=== PATIENT | female | born 1970 | race Caucasian/White ===

== ENCOUNTER 2017-03-03 05:57 | Inpatient (IN) | payer OTHER ==
[2017-03-03] VITALS (8 sets, daily range): BP systolic 98–126; BP diastolic 56–79; PULSE 51–67; RESP 14–20; TEMP 96.6–98.3; O2SAT 97–100
[~2017-03-03] VITALS: Ht 167.6 cm; Wt 69.8 kg
[2017-03-03] MEDS ORDERED: ONDANSETRON HCL 4 MG/2 ML VIAL IV ONE (06:15)
[2017-03-03] MEDS ORDERED: SODIUM CHLOR 0.9% 1000 ML INJ 1,000 ML IV ONE (06:15)
--- NOTE | 2017-03-03 06:42 | PD ---
HPI Chief Complaint: Abdominal Pain Time Seen by Provider: 06:07 Travel History International Travel<30 days: Yes Contact w/Intl Traveler<30days: Yes Name of Country Traveled to: [place] Traveled to known affect area: No History of Present Illness HPI The patient is a 46 year old female who presents to the [facility] emergency department with a history of abdominal pain that she reports began in November. She reports that it have been only occurring 1 time per month. She reports that the pain recurred on Wednesday night. She reports that she was uncomfortable throughout the night and then awoke with left upper quadrant abdominal pain at 5:30 AM. She reports that she had nausea and vomiting 1 associated with this and diarrhea 2-3 times. She denies having any blood in her stool or black or tarry stools. The patient reports that the pain is a cramping sensation. She denies any alleviating or aggravating factors. She reports that she has had a diminished appetite. She reports that she was able to sleep and awoke again at 11 AM on Wednesday without the pain. She reports that on Wednesday she felt better throughout the day and then this evening the pain recurred. She reports that her primary care physician is in [place]. She denies ever having a colonoscopy. She denies having any acid reflux or heartburn symptoms. She denies taking any [id number] anti-inflammatory pain medications on a regular basis. She denies regularly drinking alcohol. She denies any dysuria, hematuria, urinary urgency, however she has had some urinary frequency. She denies having any chest pain, chest pressure, or shortness of breath. She denies having any fevers or chills, cough or congestion. She denies having any lower extremity edema, calf pain, or erythema. The patient reports that she is currently nauseated. LMP: Status post hysterectomy PFSH Past Medical History Narrative Medical The patient's past medical history is reportedly none. Medical History: Denies Significant Hx ?: Not Past Surgical History Narrative Surgical The patient's past surgical history is significant for hysterectomy, 1. Section: Yes (2005) Hysterectomy: Yes Tonsillectomy: Yes Social History Alcohol Use: No Tobacco Use: No (used to smoke 1 1/2 ppd) Substance Use: No Allergies-Medications (Allergen,Severity, Reaction): Coded Allergies: No Known Allergies (Unverified , 03/03/17) Review of Systems Except as stated in HPI: all other systems reviewed are Neg General / Constitutional: No: Fever Eyes: No: Visual changes HENT: No: Headaches Cardiovascular: No: Chest Pain or Discomfort Respiratory: No: Shortness of Breath Gastrointestinal: Positive: Nausea, Vomiting, Diarrhea, Abdominal Pain, Loss of Appetite, No: Hematemesis, Hematochezia, Constipation, Changes in Bowel Habits, Indigestion Genitourinary: No: Dysuria Musculoskeletal: No: Pain Skin: No Rash Neurologic: No: Weakness Psychiatric: No: Depression Endocrine: No: Polydipsia Hematologic/Lymphatic: No: Easy Bruising Physical Exam Narrative General: The patient is a well-developed well-nourished female in no acute distress. Head and Neck exam: Head is normocephalic atraumatic. Eyes: EOMI, pupils are equal round and reactive to light. Nose: Midline septum with pink mucous membranes Mouth: Dentition unremarkable. Moist mucus membranes. Posterior oropharynx is not erythematous. No tonsillar hypertrophy. Uvula midline. Airway patent. Neck: No palpable lymphadenopathy. No nuchal rigidity. No thyromegaly. Cardiovascular: Regular rate and rhythm without murmurs, gallops, or rubs. Lungs: Clear to auscultation bilaterally. No wheezes, rhonchi, or rales. Abdomen: Soft, without tenderness to palpation in all 4 quadrants of the abdomen. No guarding, rebound, or rigidity. No tenderness on palpation of McBurney's point. Normal bowel sounds are audible. Negative Watton sign. Extremities: No clubbing, cyanosis, or edema. 2+ pulses in all 4 extremities. No calf tenderness on palpation. Back: No costovertebral angle tenderness to palpation. Neurologic Exam: Grossly nonfocal. Skin Exam: No rash noted. Intact skin that is warm and dry. Data Data Last Documented VS Vital Signs Date Time Temp Pulse Resp B/P Pulse Ox O2 Delivery O2 Flow Rate FiO2 03/03/17 06:10 54 18 124/76 99 Room Air 03/03/17 05:58 97.8 Orders Electrocardiogram (03/03/17 06:10) Complete Blood Count With Diff (03/03/17 06:10) Comprehensive Metabolic Panel (03/03/17 06:10) Prothrombin Time / Inr (Pt) (03/03/17 06:10) Act Partial Throm Time (Ptt) (03/03/17 06:10) C-Reactive Protein (Crp) (03/03/17 06:10) Lipase (03/03/17 06:10) Urinalysis - C+S If Indicated (03/03/17 06:10) Magnesium (Mg) (03/03/17 06:10) Iv Access Insert/Monitor (03/03/17 06:10) Ecg Monitoring (03/03/17 06:10) Lactic Acid (03/03/17 06:10) Sodium Chlor 0.9% 1000 Ml Inj (Ns 1000 M (03/03/17 06:15) Ondansetron Inj (Zofran Inj) (03/03/17 06:15) Ketorolac Inj (Toradol Inj) (03/03/17 06:45) Ct Abd/Pel W/O Iv Contrast (03/03/17 06:42) Labs Laboratory Tests Test 03/03/17 06:15 White Blood Count 8.7 TH/MM3 Red Blood Count 4.07 MIL/MM3 Hemoglobin 11.8 GM/DL Hematocrit 35.5 % Mean Corpuscular Volume 87.2 FL Mean Corpuscular Hemoglobin 29.0 PG Mean Corpuscular Hemoglobin 33.3 % Concent Red Cell Distribution Width 14.5 % Platelet Count 270 TH/MM3 Mean Platelet Volume 10.5 FL Neutrophils (%) (Auto) 56.4 % Lymphocytes (%) (Auto) 30.8 % Monocytes (%) (Auto) 8.5 % Eosinophils (%) (Auto) 4.0 % Basophils (%) (Auto) 0.3 % Neutrophils # (Auto) 4.9 TH/MM3 Lymphocytes # (Auto) 2.7 TH/MM3 Monocytes # (Auto) 0.7 TH/MM3 Eosinophils # (Auto) 0.4 TH/MM3 Basophils # (Auto) 0.0 TH/MM3 CBC Comment DIFF FINAL Differential Comment MDM Medical Decision Making Medical Screen Exam Complete: Yes Emergency Medical Condition: Yes Medical Record Reviewed: Yes Differential Diagnosis Peptic ulcer disease, versus acid reflux, versus gastritis, versus pancreatitis , versus pyelonephritis, versus ureterolithiasis Narrative Course During the course of the patients emergency department visit, the patients history, examination, and differential diagnosis were reviewed with the patient. The patient had IV access obtained and blood work sent for analysis. The patient was placed on a property assessment monitor with oximetry and blood pressure monitoring. I was called back into the room to evaluate the patient as the patient's pain had not been present on initial examination although it recurred when I left. The patient on examination now has CVA tenderness and suprapubic abdominal discomfort on palpation. A CT scan of the abdomen and pelvis has been ordered to evaluate for possible underlying nephrolithiasis. The patient was initially provided normal saline 1 L IV fluid bolus, Zofran 4 mg IV. The patient was given Toradol 15 mg IV. The patients laboratory studies were reviewed and remarkable for a CBC that is unremarkable. Radiology studies were reviewed and remarkable for [-] The patient's case will be checked out to the oncoming emergency physician to disposition based on the conclusion of the patient's workup. Diagnosis Primary Impression: Abdominal pain Qualified Code: R10.12 - Left upper quadrant pain Additional Impression: Left flank pain Avril Trevizo MD Mar 03, 2017 06:42
[2017-03-03 06:43] LABS: AUTOMATED NEUTROPHIL # 4.9 TH/MM3 (1.8-7.7); BASOPHIL % 0.3 % (0.0-2.0); EOSINOPHIL # 0.4 TH/MM3 (0-0.4); HEMATOCRIT 35.5 % (35.0-46.0); HEMO FLAGS DIFF FINAL; LYMPH % 30.8 % (9.0-44.0); LYMPHOCYTE # 2.7 TH/MM3 (1.0-4.8); MEAN CELL VOLUME 87.2 FL (80.0-100.0); MEAN CORPUSCULAR HGB CONC 33.3 % (32.0-36.0); MONO % 8.5 % (0.0-8.0); NEUT % 56.4 % (16.0-70.0); PLATELET COUNT 270 TH/MM3 (150-450); RED BLOOD COUNT 4.07 MIL/MM3 (4.00-5.30); RED CELL DISTRIBUTION WIDTH 14.5 % (11.6-17.2); WHITE BLOOD COUNT 8.7 TH/MM3 (4.0-11.0)
[2017-03-03] MEDS ORDERED: KETOROLAC TROMETHAMINE 30 MG/ML (IVP) VIAL IV PUSH ONE (06:45)
[2017-03-03 06:59] LABS: INTERNATIONAL NORMALIZED RATIO 0.9 RATIO; PROTHROMBIN TIME - PATIENT 10.4 SEC (9.8-11.6)
[2017-03-03 07:01] LABS: ANION GAP 4 MEQ/L (5-15); AST (GOT) 16 U/L (15-37); BICARBONATE 25.8 MEQ/L (21.0-32.0); BLOOD UREA NITROGEN 13 MG/DL (7-18); CHLORIDE 109 MEQ/L (98-107); GLOMERULAR FILTRATION RATE 111 ML/MIN (>89); POTASSIUM 3.9 MEQ/L (3.5-5.1); SODIUM (NA) 139 MEQ/L (136-145)
[2017-03-03 07:02] LABS: ALT (GPT) 22 U/L (10-53)
[2017-03-03 07:05] LABS: ALKALINE PHOSPHATASE 63 U/L (45-117); TOTAL BILIRUBIN ADULT 0.3 MG/DL (0.2-1.0)
--- NOTE | 2017-03-03 07:33 | PD ---
Data Data Last Documented VS Vital Signs Date Time Temp Pulse Resp B/P Pulse Ox O2 Delivery O2 Flow Rate FiO2 03/03/17 07:12 51 14 118/79 99 Room Air 03/03/17 05:58 97.8 Orders Electrocardiogram (03/03/17 06:10) Complete Blood Count With Diff (03/03/17 06:10) Comprehensive Metabolic Panel (03/03/17 06:10) Prothrombin Time / Inr (Pt) (03/03/17 06:10) Act Partial Throm Time (Ptt) (03/03/17 06:10) C-Reactive Protein (Crp) (03/03/17 06:10) Lipase (03/03/17 06:10) Urinalysis - C+S If Indicated (03/03/17 06:10) Magnesium (Mg) (03/03/17 06:10) Iv Access Insert/Monitor (03/03/17 06:10) Ecg Monitoring (03/03/17 06:10) Lactic Acid (03/03/17 06:10) Sodium Chlor 0.9% 1000 Ml Inj (Ns 1000 M (03/03/17 06:15) Ondansetron Inj (Zofran Inj) (03/03/17 06:15) Ketorolac Inj (Toradol Inj) (03/03/17 06:45) Ct Abd/Pel W/O Iv Contrast (03/03/17 06:42) Lactic Acid (03/03/17 08:29) Admit Order (Ed Use Only) (03/03/17 ) Morphine Inj (Morphine Inj) (03/03/17 08:45) Labs Laboratory Tests Test 03/03/17 03/03/17 06:15 06:25 White Blood Count 8.7 TH/MM3 Red Blood Count 4.07 MIL/MM3 Hemoglobin 11.8 GM/DL Hematocrit 35.5 % Mean Corpuscular Volume 87.2 FL Mean Corpuscular Hemoglobin 29.0 PG Mean Corpuscular Hemoglobin 33.3 % Concent Red Cell Distribution Width 14.5 % Platelet Count 270 TH/MM3 Mean Platelet Volume 10.5 FL Neutrophils (%) (Auto) 56.4 % Lymphocytes (%) (Auto) 30.8 % Monocytes (%) (Auto) 8.5 % Eosinophils (%) (Auto) 4.0 % Basophils (%) (Auto) 0.3 % Neutrophils # (Auto) 4.9 TH/MM3 Lymphocytes # (Auto) 2.7 TH/MM3 Monocytes # (Auto) 0.7 TH/MM3 Eosinophils # (Auto) 0.4 TH/MM3 Basophils # (Auto) 0.0 TH/MM3 CBC Comment DIFF FINAL Differential Comment Prothrombin Time 10.4 SEC Prothromb Time International 0.9 RATIO Ratio Activated Partial 25.0 SEC Thromboplast Time Sodium Level 139 MEQ/L Potassium Level 3.9 MEQ/L Chloride Level 109 MEQ/L Carbon Dioxide Level 25.8 MEQ/L Anion Gap 4 MEQ/L Blood Urea Nitrogen 13 MG/DL Creatinine 0.59 MG/DL Estimat Glomerular Filtration 111 ML/MIN Rate Random Glucose 78 MG/DL Calcium Level 8.2 MG/DL Magnesium Level 2.0 MG/DL Total Bilirubin 0.3 MG/DL Aspartate Amino Transf 16 U/L (AST/SGOT) Alanine Aminotransferase 22 U/L (ALT/SGPT) Alkaline Phosphatase 63 U/L C-Reactive Protein LESS THAN 0.29 MG/DL Total Protein 6.5 GM/DL Albumin 3.1 GM/DL Lipase 247 U/L Lactic Acid Level 1.0 mmol/L [facility] Supervised Visit with CALIN: No Narrative Course Patient care assumed from Dr. Trevizo at 0700 shift change. I was asked to follow the patient's CAT scan of her abdomen and disposition the patient properly. This is a 46-year-old female who since November is been having waxing and waning periods of abdominal cramping and pain on Dr. Trevizo's initial evaluation the patient was without pain and feeling well. Shortly after her initial evaluation patient began having pain so Dr. Trevizo and ordered a CAT scan. On my initial evaluation patient's abdomen is fairly soft and minimally tender in the epigastric area but she is stating that her pain is quite significant. Her initial lactic acid was less than 2. Patient's CAT scan was obtained and shows extensive small bowel intussusception in the lower quadrants without definitive obstruction. This was discussed with the patient and recommended a cervical consult and observation and she is agreeable. The patient was discussed with Dr. Fariha Yanes will place the patient observation status. He states that he is stuck and surgery will see the patient later today and likely will manage the patient nonoperatively. No pain management was ordered. Patient has no other medical comorbidities. Diagnosis Primary Impression: Abdominal pain Qualified Code: R10.12 - Left upper quadrant pain Additional Impression: Left flank pain Admitting Information Admitting Physician Requests: Admit Condition: Stable Elie Harrell MD Mar 03, 2017 07:33
--- NOTE | 2017-03-03 08:09 | RADRPT ---
EXAM DATE/TIME: 03/03/2017 07:27 [place] COMPARISON: No previous studies available for comparison. INDICATIONS : Right side abdominal pain. ORAL CONTRAST: No oral contrast ingested. RADIATION DOSE: 14.51 CTDIvol (mGy) MEDICAL HISTORY : None SURGICAL HISTORY : Hysterectomy. ENCOUNTER: Initial ACUITY: 4 - 6 days PAIN SCALE: 7/10 LOCATION: Right abdomen TECHNIQUE: Volumetric scanning of the abdomen and pelvis was performed. Using automated exposure control and ad justment of the mA and/or kV according to patient size, radiation dose was kept as low as reasonably achievable to obtain optimal diagnostic quality images. DICOM format image data is available electro nically for review and comparison. FINDINGS: There is evidence of an extensive intussusception of the small bowel. Clinical correlation is recomm ended. No definite small bowel dilatation is noted. the colon is non-dilated. No acute obstructive uropathy is noted. the liver is enlarged. Evaluation of the solid organs of the abdomen is limited by the lack of intravenous contrast. Minimal ascites is noted within the pelvis. The uterus is unre markable. The urinary bladder is unremarkable. Mild scoliosis of the lumbar spine is noted. CONCLUSION: 1. Extensive intussusception of the small bowel without definite small bowel dilatation. Clinical c orrelation is recommended. 2. No acute obstructive uropathy. 3. Mild scoliosis of the lumbar spine. Elie Schultz MD on March 03, 2017 at 7:53 Board Certified Radiologist. This report was verified electronically.
[2017-03-03] MEDS ORDERED: MORPHINE SULFATE 4 MG/ML INJ IV PUSH ONE (08:45)
[2017-03-03] MEDS ORDERED: HYDROmorphone HCL PF 1 MG/ML VIAL IV PUSH ONE (10:00)
[2017-03-03 10:45] LABS: BLOOD, URINE NEG (NEG); COMMENT (UR) CULT NOT INDICATED; CULTURE IF INDICATED CULT NOT INDICATED; GLUCOSE,URINE NEG (NEG); KETONE, URINE NEG (NEG); MUCUS URINE FEW /lpf (OCC); NITRITE,URINE NEG (NEG); PH, URINE 6.5 (5.0-8.5); SQUAMOUS EPITHELIAL CELL URINE 2 /hpf (0-5); URINE COLOR YELLOW (YELLW/STRAW)
[2017-03-03] MEDS ORDERED: NORMOSOL R INJ 1,000 ML IV ONE (12:00)
[2017-03-03] MEDS ORDERED: NEOSTIGMINE 3 MG/3 ML SYR IV ONE (12:00)
[2017-03-03] MEDS ORDERED: LACTATED RINGER'S 1000 ML INJ 2,000 ML IV ONE (12:00)
[2017-03-03] MEDS ORDERED: PROPOFOL 200 MG/20 ML AMP IV ONE (12:00)
[2017-03-03] MEDS ORDERED: ONDANSETRON HCL 4 MG/2 ML VIAL IV PUSH ONE (12:00)
[2017-03-03] MEDS ORDERED: MIDAZOLAM HCL 2 MG/2 ML VIAL ONE (13:12)
[2017-03-03] MEDS ORDERED: fentaNYL CITRATE 250 MCG/5 ML AMP ONE (13:12)
[2017-03-03] MEDS ORDERED: DEXAMETHASONE SOD PHOS 4 MG/ML VIAL ONE (13:12)
[2017-03-03] MEDS ORDERED: ACETAMINOPHEN 1000 MG/100 ML VIAL IV ONE (13:12)
[2017-03-03] MEDS ORDERED: FAMOTIDINE 20 MG/2 ML VIAL ONE (13:12)
[2017-03-03] MEDS ORDERED: HYDROmorphone HCL PF 2 MG/ML VIAL ONE (13:12)
[2017-03-03] MEDS ORDERED: ceFAZolin INJ 1,000 MG VIAL ONE (13:58)
[2017-03-03] MEDS ORDERED: GELFOAM SIZE 100 ONE (13:58)
[2017-03-03] MEDS ORDERED: THROMBIN (TOPICAL) 5,000 UNIT VIAL ONE (13:58)
--- NOTE | 2017-03-03 14:05 | MB ---
cc: PEGGY SAN DATE OF CONSULTATION: 03/03/[address] Harrell, emergency room physician. REASON FOR CONSULTATION Intussusception. HISTORY OF PRESENT ILLNESS The patient is a 46-year-old female with intermittent abdominal pain was several months, who now presented to [facility] with severe onset of periumbilical abdominal pain. The patient underwent evaluation and was found to have a long segment intussusception on a CT scan of the abdomen and pelvis. The patient states this pain is similar to her previous pain but she has not had anything this severe before. She denies nausea, vomiting, obstipation, constipation, hematochezia, fevers, chills or night sweats. The patient has had previous surgery, , hysterectomy. REVIEW OF SYSTEMS A 12-point review of systems was conducted with the patient and is negative except for the pertinent positives as mentioned above in history of present illness. PAST MEDICAL HISTORY The patient denies any chronic medical problems. PAST SURGICAL HISTORY section, hysterectomy, tonsillectomy. SOCIAL HISTORY The patient denies alcohol or substance drug use. Smokes half-pack of cigarettes per day. ALLERGIES NO KNOWN DRUG ALLERGIES. MEDICATIONS None. FAMILY HISTORY Noncontributory. PHYSICAL EXAMINATION VITAL SIGNS: Temperature 98.3 degrees, pulse rate 62, respiratory rate 20, blood pressure 109/64, O2 saturation 100% on room air. GENERAL: Patient is a well-developed, well-nourished female in no acute distress. HEENT: Head is normocephalic, atraumatic. Pupils are round, reactive, accommodation, to light. Sclerae is anicteric. Mucous membranes are moist. NECK: Neck is supple. No JVD. LUNGS: Clear to auscultation bilaterally. Nonlabored breathing pattern. HEART: Regular rate and rhythm. No murmurs. ABDOMEN: Soft, nondistended. Tender to palpation in the periumbilical area diffusely without rebound tenderness or guarding or peritonitis. Normal bowel sounds. BACK: No CVA tenderness. EXTREMITIES: No clubbing, cyanosis or edema. NEUROLOGIC: The patient is oriented x3. Nonfocal peripheral exam. Cranial nerves II-XII are grossly intact. Mood and affect are normal. LABORATORY FINDINGS White blood cell count 8.7, hemoglobin 11.8, INR 0.9, otherwise the labs are within normal limits. IMAGING STUDIES CT scan of the abdomen and pelvis shows extensive intussusception of small bowel. ASSESSMENT AND PLAN The patient is a 46-year-old female with extensive intussusception. I evaluated the patient's CT scan and this is very extensive long segment intussusception with no obvious lead point. Intussusceptions although often can resolve nonoperatively, it is felt this very long segment with very thickened abnormal appearing bowel, that this is unlikely to resolve without surgical intervention. I did discuss this with the patient and her and did recommend surgical intervention, exploratory laparotomy with reduction of intussusception and possible bowel resection. I explained risks, benefits and alternatives as well. All questions were answered to their satisfaction. I did review the CT scan with the patient's and answered all of his questions to his satisfaction. The patient and do feel it is appropriate and they agreed to undergo surgical intervention for this acute problem. We will proceed into the operating room as soon as possible based on operating room availability. MD NAHEED Lopez/FRANCISCO /1:24 PM /1:43 PM
[2017-03-03] MEDS ORDERED: THROMBIN (TOPICAL) 5,000 UNIT VIAL TOPICAL ONE (14:29)
[2017-03-03] MEDS ORDERED: GELFOAM SIZE 100 TOP ONE (14:29)
[2017-03-03] MEDS ORDERED: PIPERACIL-TAZO 3.375 GM PREMIX 50 ML IV SCH (14:45)
[2017-03-03] MEDS ORDERED: SUGAMMADEX SODIUM 200 MG/2 ML VIAL IV PUSH ONE ×2 (15:08)
--- NOTE | 2017-03-03 15:38 | HHI.PR ---
Immediate Post Op Note Procedure Date: Mar 03, 2017 Pre Op Diagnosis: (1) Intussusception intestine Post Op Diagnosis: (1) Intussusception intestine (2) Mass of small intestine Surgeon: Jere Florence Boiler Reliner(s): staff Procedure: Exploratory laparotomy reduction of Intussusception small bowel resection with primary anastomosis pelvic biopsy Findings: intussusception 2/2 small bowel mass Complications: none Specimen(s) removed: small bowel and mesentery with mass pelvic biopsy at area of cervix Estimated blood loss: 25ml Anesthesia: General, Regional Block Drains: None Patient to: PACU Patient Condition: Good Jere Florence MD Mar 03, 2017 15:38
[2017-03-03] MEDS ORDERED: SODIUM CHLORIDE 0.9% FLUSH 10 ML FLUSH IV FLUSH PRN (15:45)
[2017-03-03] MEDS ORDERED: LORazepam 2 MG/ML VIAL IVP PRN (15:45)
[2017-03-03] MEDS ORDERED: Post-op Orders (for Pharmacy) MISC XX ONE (15:45)
[2017-03-03] MEDS ORDERED: NALOXONE HCL 0.4 MG/ML AMP IV PRN ×2 (15:45)
[2017-03-03] MEDS ORDERED: BENZOCAINE 20% ORAL SPR 60 ML CAN MT PRN (15:45)
[2017-03-03] MEDS ORDERED: diphenhydrAMINE HCL 50 MG/ML VIAL IV PRN (15:45)
[2017-03-03] MEDS ORDERED: MAGNESIUM HYDROXIDE SUSP 30 ML CUP PO PRN (15:45)
[2017-03-03] MEDS ORDERED: ONDANSETRON HCL 4 MG/2 ML VIAL IV PRN (15:45)
[2017-03-03] MEDS ORDERED: DO NOT ADM ANY ANTICOAGULANT DRUGS PRN (15:47)
[2017-03-03] MEDS ORDERED: MEPERIDINE HCL 25 MG/ML VIAL ONE (15:47)
[2017-03-03] MEDS: SODIUM CHLOR 0.9% 1000 ML INJ 1,000 ML IV SCH (16:24)
[2017-03-03] MEDS: MORPHINE SULFATE 30 MG/30 ML PCA IV SCH (16:25)
[2017-03-03] MEDS: PANTOPRAZOLE SODIUM 40 MG VIAL IV SCH (16:45)
[2017-03-03] MEDS: ACETAMINOPHEN 1000 MG/100 ML VIAL IV SCH ×2 (18:15→23:56)
[2017-03-03] MEDS: SODIUM CHLORIDE 0.9% FLUSH 10 ML FLUSH IV FLUSH SCH (19:53)
[2017-03-03] MEDS: PCA - TOTAL MG MORPHINE DELIVERED PER SHIFT SCH (22:00)
--- NOTE | 2017-03-03 23:01 | EKG ---
Date Performed: 03/03/2017 Time Performed: 06:48:28 PTAGE: 46 years EKG: SINUS BRADYCARDIA BORDERLINE ECG NO PREVIOUS TRACING DOCTOR: Pamela López Interpretating Date/Time 03/03/2017 22:59:23
[2017-03-04] VITALS (7 sets, daily range): BP systolic 84–104; BP diastolic 50–61; PULSE 66–73; RESP 16–18; TEMP 96.9–98.5; O2SAT 96–99
[2017-03-04] MEDS: SODIUM CHLOR 0.9% 1000 ML INJ 1,000 ML IV SCH ×3 (01:31→19:38)
[2017-03-04] MEDS: MORPHINE SULFATE 30 MG/30 ML PCA IV SCH ×2 (04:56→22:22)
[2017-03-04] MEDS: ACETAMINOPHEN 1000 MG/100 ML VIAL IV SCH ×2 (04:58→12:32)
[2017-03-04] MEDS: PCA - TOTAL MG MORPHINE DELIVERED PER SHIFT SCH ×3 (05:36→21:35)
[2017-03-04 06:31] LABS: AUTOMATED NEUTROPHIL # 21.6 TH/MM3 (1.8-7.7); BASOPHIL % 0.1 % (0.0-2.0); EOSINOPHIL % 0.1 % (0.0-4.0); HEMATOCRIT 32.3 % (35.0-46.0); HEMO FLAGS DIFF FINAL; LYMPH % 4.5 % (9.0-44.0); LYMPHOCYTE # 1.1 TH/MM3 (1.0-4.8); MEAN CELL VOLUME 87.6 FL (80.0-100.0); MEAN CORPUSCULAR HEMOGLOBIN 28.6 PG (27.0-34.0); MEAN CORPUSCULAR HGB CONC 32.7 % (32.0-36.0); MONO % 4.9 % (0.0-8.0); NEUT % 90.4 % (16.0-70.0); PLATELET COUNT 242 TH/MM3 (150-450); RED BLOOD COUNT 3.68 MIL/MM3 (4.00-5.30); RED CELL DISTRIBUTION WIDTH 14.5 % (11.6-17.2); WHITE BLOOD COUNT 23.9 TH/MM3 (4.0-11.0)
[2017-03-04 07:02] LABS: BICARBONATE 27.7 MEQ/L (21.0-32.0); POTASSIUM 3.8 MEQ/L (3.5-5.1)
[2017-03-04] MEDS: SODIUM CHLORIDE 0.9% FLUSH 10 ML FLUSH IV FLUSH SCH ×2 (09:00→19:31)
--- NOTE | 2017-03-04 15:32 | HHI.PR ---
Subjective Subjective Notes Resting in bed C/o pain when she moves Objective Vitals/I&O Vital Signs Date Time Temp Pulse Resp B/P Pulse Ox O2 Delivery O2 Flow Rate FiO2 03/04/17 12:00 96.9 68 17 96/54 98 03/03/17 18:15 Nasal Cannula 2 Labs Laboratory Tests Test 03/04/17 03/04/17 05:41 13:34 White Blood Count 23.9 Red Blood Count 3.68 Hemoglobin 10.5 Hematocrit 32.3 Mean Corpuscular Volume 87.6 Mean Corpuscular Hemoglobin 28.6 Mean Corpuscular Hemoglobin 32.7 Concent Red Cell Distribution Width 14.5 Platelet Count 242 Mean Platelet Volume 10.7 Neutrophils (%) (Auto) 90.4 Lymphocytes (%) (Auto) 4.5 Monocytes (%) (Auto) 4.9 Eosinophils (%) (Auto) 0.1 Basophils (%) (Auto) 0.1 Neutrophils # (Auto) 21.6 Lymphocytes # (Auto) 1.1 Monocytes # (Auto) 1.2 Eosinophils # (Auto) 0.0 Basophils # (Auto) 0.0 CBC Comment DIFF FINAL Differential Comment Sodium Level 138 Potassium Level 3.8 Chloride Level 106 Carbon Dioxide Level 27.7 Anion Gap 4 Blood Urea Nitrogen 7 Creatinine 0.59 Estimat Glomerular Filtration 111 Rate Random Glucose 97 Calcium Level 7.7 Lactic Acid Level 1.0 Cardiovascular: Regular Lungs: Clear Abdomen: Other (midline incision; abdomen mildly distended ), Post-op tenderness Extremities: No edema A/P Assessment and Plan 46 year old female POD1 Exploratory laparotomy; reduction of Intussusception; small bowel resection with primary anastomosis; pelvic biopsy -IVF -Sips of water and ice chips okay; when bowel function returns will start PO diet -Pain control---C[employer] pump -OOB and mobilize as tolerated -Abdominal binder for comfort -Await pathology Jnaey Jeronimo Mar 04, 2017 15:32
[2017-03-04] MEDS: PANTOPRAZOLE SODIUM 40 MG VIAL IV SCH (15:41)
[2017-03-04] MEDS: ENOXAPARIN SODIUM 40 MG/0.4 ML SYRINGE SQ SCH (15:41)
[2017-03-05 00:26] VITALS: BP 106/65; PULSE 75; RESP 17; TEMP 96.9; O2SAT 99
[2017-03-05 04:49] VITALS: BP 103/62; PULSE 71; RESP 18; TEMP 98.7; O2SAT 97
[2017-03-05] MEDS: PCA - TOTAL MG MORPHINE DELIVERED PER SHIFT SCH ×3 (05:52→22:00)
[2017-03-05 08:00] VITALS: BP 98/63; PULSE 75; RESP 20; TEMP 96.9; O2SAT 99
[2017-03-05] MEDS: SODIUM CHLOR 0.9% 1000 ML INJ 1,000 ML IV SCH (08:57)
[2017-03-05] MEDS: SODIUM CHLORIDE 0.9% FLUSH 10 ML FLUSH IV FLUSH SCH ×2 (08:59→21:00)
[2017-03-05 12:00] VITALS: BP 106/63; PULSE 73; RESP 18; TEMP 97.4; O2SAT 98
--- NOTE | 2017-03-05 15:10 | HHI.PR ---
Subjective Subjective Notes Has ambulated in halls today Pain much improved today Feels hungry Objective Vitals/I&O Vital Signs Date Time Temp Pulse Resp B/P Pulse Ox O2 Delivery O2 Flow Rate FiO2 03/05/17 14:00 18 03/05/17 12:00 97.4 73 106/63 98 03/03/17 18:15 Nasal Cannula 2 Cardiovascular: Regular Lungs: Clear Abdomen: Other (ABd binder in place; midline incision c/d/i; abd soft; mildly tender to palpation ) Extremities: No edema A/P Assessment and Plan 46 year old female POD2 Exploratory laparotomy; reduction of Intussusception; small bowel resection with primary anastomosis; pelvic biopsy -Advance to fulls today -DC IVF -Pain control---USED [employer] pump---will add PO pain meds -OOB and mobilize as tolerated -Abdominal binder for comfort -Await pathology -Plan for DC home this weekend Janey Jeronimo Mar 05, 2017 15:10
[2017-03-05 15:24] LABS: AUTOMATED NEUTROPHIL # 10.1 TH/MM3 (1.8-7.7); BASOPHIL % 0.1 % (0.0-2.0); EOSINOPHIL # 0.1 TH/MM3 (0-0.4); EOSINOPHIL % 0.8 % (0.0-4.0); HEMATOCRIT 33.4 % (35.0-46.0); HEMO FLAGS DIFF FINAL; LYMPH % 9.3 % (9.0-44.0); LYMPHOCYTE # 1.2 TH/MM3 (1.0-4.8); MEAN CELL VOLUME 88.8 FL (80.0-100.0); MEAN CORPUSCULAR HEMOGLOBIN 28.6 PG (27.0-34.0); MEAN CORPUSCULAR HGB CONC 32.2 % (32.0-36.0); MONO % 9.2 % (0.0-8.0); NEUT % 80.6 % (16.0-70.0); PLATELET COUNT 230 TH/MM3 (150-450); RED BLOOD COUNT 3.76 MIL/MM3 (4.00-5.30); RED CELL DISTRIBUTION WIDTH 14.7 % (11.6-17.2); WHITE BLOOD COUNT 12.5 TH/MM3 (4.0-11.0)
[2017-03-05 15:36] LABS: BICARBONATE 24.8 MEQ/L (21.0-32.0)
[2017-03-05] MEDS: PANTOPRAZOLE SODIUM 40 MG VIAL IV SCH (15:53)
[2017-03-05] MEDS: ENOXAPARIN SODIUM 40 MG/0.4 ML SYRINGE SQ SCH (15:53)
[2017-03-05 16:00] VITALS: BP 106/63; PULSE 73; RESP 20; TEMP 97.4; O2SAT 98
[2017-03-05] MEDS ORDERED: POTASSIUM CHLORIDE 10 MEQ CONTROLLED RELEASE TAB PO ONE (16:30)
--- NOTE | 2017-03-05 18:00 | MP ---
cc: PEGGY SAN DATE OF SURGERY 03/03/17 PREOPERATIVE DIAGNOSIS Long segment intussusception. POSTOPERATIVE DIAGNOSIS 1. Long segment intussusception. 2. Small bowel mass with palpable lymphadenopathy. PROCEDURE 1. Exploratory laparotomy. 2. Reduction of intussusception. 3. Small bowel resection with lymphadenectomy with primary anastomosis. 4. Pelvic peritoneal biopsy at hysterectomy site. ATTENDING SURGEON Naman. PNEUMATIC RIVETER Staff. ANESTHESIA General and regional tap block. FINDINGS 1. Approximately 3-cm intraluminal small bowel mass of the distal ileum with palpable lymphadenopathy adjacent to this. 2. Log segment intussusception with viable nonischemic bowel easily reduced with small bowel mass as a lead point. 3. No evidence of carcinomatosis or metastatic disease. 4. Scar tissue versus plaque type mass at the patient's previous hysterectomy site. BLOOD LOSS 25 cc. COMPLICATIONS None. INDICATIONS FOR PROCEDURE The patient is a 46-year-old female with severe abdominal pain. The patient presented to the [facility] Emergency Department and a CT scan showed a very long segment intussusception. General surgery is consulted. Due to the long segment of intussusception it was unlikely this was incidental finding or a disease process that would resolve without surgical intervention. I did recommend surgical intervention to the patient and her for reduction of intussusception due to concern for possible bowel ischemia, mass or perforation. Risks, benefits, alternatives were discussed extensively and the patient agreed to undergo the procedure. PROCEDURE IN DETAIL Informed consent was obtained. The patient was taken to the operating room placed in the supine position and placed under general endotracheal anesthesia. The patient's abdomen was prepped and draped in sterile fashion. Time-out was performed. Lower midline incision from the umbilicus to the pubis was performed a 10 blade scalpel. Bovie electrocautery was used to dissect the subcutaneous tissue and open the midline fascia. Opened the peritoneal cavity. We placed a hand retractor, able to easily gain access to the pelvis in the small bowel. We were able to easily extra____ the small bowel of concern. There was a long segment approximately a foot and a half of intussuscepted small bowel. We milked this from distal to proximal without difficulty and completely reduced this. There was minimal ischemic change which immediately pinked up with no contusion and no evidence of non-viability of. At the lead point of this intussusception was a mass approximately 3 cm that appeared to be taking up the majority of the lumen of the small bowel. There was some palpable lymphadenopathy adjacent to this. We did at this in point time turn our attention towards resection due to the patient having this mass as the cause of the obstruction and intussusception to prevent recurrence. We performed a small bowel resection taking several centimeters proximal and distal small bowel with a blue load on the KT stapler. We used the Ethicon Enseal to divide the mesentery down to near the root of the mesentery, there was a large wedge resection of the mesentery to incorporate multiple lymph nodes and lymphatic drainage. All visible and palpable lymphadenopathy was included in this resection. I then turned our attention towards the reanastomosis. We performed a [id number] functional end-to-end anastomosis using a blue load on the GI 55 stapler and the staple defect was closed with a second load on GI 55 linear stapler cutter. We placed cross stitches and proximal and distal with 3-0 silk sutures and closed the mesenteric defect with running 3-0 silk suture. The cystic mass was wide open, viable with no signs of any leak or ischemia. We then ran the entire small bowel. There was no abnormality. We visualized the liver and palpated the liver left and right lobes, again, no evidence of any abnormality. We did irrigate the abdomen with saline till all suctionate was clear. The only abnormality was prior to closure noted was a little bit of scar tissue at the patient's previous hysterectomy site which appeared to be excessive scarring. I felt this was warranted biopsy due to the concern for the possible malignancy due to the excessive amount of a tissue in this area that was seen to be more than normal healing. I did use Metzenbaum scissors and DeBakey to excise a small piece of this tissue and was sent for permanent processing. Excellent hemostasis with Bovie electrocautery. Then are attention was turned to closure, ensured the bowel laid in normal anatomic position and we placed omentum back over the midline. We closed the peritoneum with a running 3-0 Vicryl suture. We closed the fascia with a running #1 looped PDS suture. We closed the skin with 4-0 Monocryl and placed a Dermabond dressing. The patient was discontinued from the anesthesia, taken to PACU in stable condition. The patient tolerated the procedure well. No apparent complications. All counts were correct. I was present and scrubbed for the entire procedure. MD EMILY LopezG/EO /11:43 AM /5:33 PM
[2017-03-05] MEDS: MORPHINE SULFATE 30 MG/30 ML PCA IV SCH (18:15)
[2017-03-05 20:00] VITALS: BP 112/66; PULSE 63; RESP 20; TEMP 97.8; O2SAT 96
[2017-03-06] VITALS: BP 102/60; PULSE 80; RESP 18; TEMP 98; O2SAT 95
[2017-03-06] MEDS: ACETAMINOPHEN/HYDROcodone 325 MG/5 MG TAB PO PRN ×5 (04:02→22:05)
[2017-03-06] MEDS: PCA - TOTAL MG MORPHINE DELIVERED PER SHIFT SCH ×3 (05:10→22:00)
[2017-03-06 08:00] VITALS: BP 107/70; PULSE 80; RESP 20; TEMP 98.6; O2SAT 95
[2017-03-06] MEDS: SODIUM CHLORIDE 0.9% FLUSH 10 ML FLUSH IV FLUSH SCH ×2 (08:56→22:08)
--- NOTE | 2017-03-06 10:48 | HHI.PR ---
Subjective Subjective Notes pain ok, sarath PO Objective Vitals/I&O Vital Signs Date Time Temp Pulse Resp B/P Pulse Ox O2 Delivery O2 Flow Rate FiO2 03/06/17 08:00 98.6 80 20 107/70 95 03/03/17 18:15 Nasal Cannula 2 Labs Laboratory Tests Test 03/05/17 14:53 White Blood Count 12.5 Red Blood Count 3.76 Hemoglobin 10.8 Hematocrit 33.4 Mean Corpuscular Volume 88.8 Mean Corpuscular Hemoglobin 28.6 Mean Corpuscular Hemoglobin 32.2 Concent Red Cell Distribution Width 14.7 Platelet Count 230 Mean Platelet Volume 10.2 Neutrophils (%) (Auto) 80.6 Lymphocytes (%) (Auto) 9.3 Monocytes (%) (Auto) 9.2 Eosinophils (%) (Auto) 0.8 Basophils (%) (Auto) 0.1 Neutrophils # (Auto) 10.1 Lymphocytes # (Auto) 1.2 Monocytes # (Auto) 1.1 Eosinophils # (Auto) 0.1 Basophils # (Auto) 0.0 CBC Comment DIFF FINAL Differential Comment Sodium Level 141 Potassium Level 3.0 Chloride Level 107 Carbon Dioxide Level 24.8 Anion Gap 9 Blood Urea Nitrogen 8 Creatinine 0.50 Estimat Glomerular Filtration 134 Rate Random Glucose 79 Calcium Level 7.9 Cardiovascular: Regular Lungs: Clear Abdomen: Non-distended, Post-op tenderness Extremities: No edema, Perfused, SCD's on A/P Assessment and Plan 46yo female s/p exlap, SBR, doing well. - advance diet - Jere Cedillo MD Mar 06, 2017 10:48
[2017-03-06 11:58] LABS: BICARBONATE 24.2 MEQ/L (21.0-32.0); POTASSIUM 3.5 MEQ/L (3.5-5.1)
[2017-03-06 12:00] VITALS: BP 112/69; PULSE 72; RESP 19; TEMP 97; O2SAT 97
[2017-03-06] MEDS: PANTOPRAZOLE SODIUM 40 MG VIAL IV SCH (15:16)
[2017-03-06] MEDS: ENOXAPARIN SODIUM 40 MG/0.4 ML SYRINGE SQ SCH (15:17)
[2017-03-06 16:00] VITALS: BP 98/58; PULSE 59; RESP 20; TEMP 98.1; O2SAT 98
[2017-03-06 20:00] VITALS: BP 126/63; PULSE 66; RESP 18; TEMP 98.9; O2SAT 96
[2017-03-07] VITALS: BP 113/67; PULSE 58; RESP 18; TEMP 98.8; O2SAT 96
[2017-03-07] MEDS: PCA - TOTAL MG MORPHINE DELIVERED PER SHIFT SCH ×3 (03:59→19:37)
[2017-03-07] MEDS: ACETAMINOPHEN/HYDROcodone 325 MG/5 MG TAB PO PRN ×3 (06:09→19:11)
[2017-03-07 08:00] VITALS: BP 108/59; PULSE 63; RESP 20; TEMP 97.1; O2SAT 96
[2017-03-07] MEDS: SODIUM CHLORIDE 0.9% FLUSH 10 ML FLUSH IV FLUSH SCH ×2 (08:53→19:12)
--- NOTE | 2017-03-07 10:26 | HHI.PR ---
Subjective Subjective Notes no acute issues, tolerating reg diet, small bm Objective Vitals/I&O Vital Signs Date Time Temp Pulse Resp B/P Pulse Ox O2 Delivery O2 Flow Rate FiO2 03/07/17 08:00 97.1 63 20 108/59 96 03/03/17 18:15 Nasal Cannula 2 Labs Laboratory Tests Test 03/06/17 11:20 Sodium Level 138 Potassium Level 3.5 Chloride Level 106 Carbon Dioxide Level 24.2 Anion Gap 8 Blood Urea Nitrogen 8 Creatinine 0.34 Estimat Glomerular Filtration 209 Rate Random Glucose 78 Calcium Level 8.2 Cardiovascular: Regular Lungs: Clear Abdomen: Other (soft incisional tenderness) A/P Assessment and Plan 46yo female s/p exlap, SBR, doing well. - advance diet - OOB - po pain control - bowel regimen - d/c planning likely tomorrow Douglas Anderson MD Mar 07, 2017 10:26
[2017-03-07 11:51] VITALS: BP 116/71; PULSE 55; RESP 19; TEMP 97; O2SAT 97
[2017-03-07] MEDS: PANTOPRAZOLE SODIUM 40 MG VIAL IV SCH (15:33)
[2017-03-07] MEDS: ENOXAPARIN SODIUM 40 MG/0.4 ML SYRINGE SQ SCH (15:34)
[2017-03-07 16:00] VITALS: BP 119/76; PULSE 64; RESP 20; TEMP 97.4; O2SAT 98
[2017-03-07 20:00] VITALS: BP 126/72; PULSE 64; RESP 17; TEMP 97.7; O2SAT 95
[2017-03-08] VITALS: BP 102/60; PULSE 72; RESP 17; TEMP 96.2; O2SAT 96
[2017-03-08] MEDS: ACETAMINOPHEN/HYDROcodone 325 MG/5 MG TAB PO PRN ×3 (02:26→11:52)
[2017-03-08] MEDS: PCA - TOTAL MG MORPHINE DELIVERED PER SHIFT SCH ×2 (02:44→13:52)
[2017-03-08 08:00] VITALS: BP 115/74; PULSE 60; RESP 17; TEMP 97; O2SAT 97
[2017-03-08] MEDS: SODIUM CHLORIDE 0.9% FLUSH 10 ML FLUSH IV FLUSH SCH (09:21)
--- NOTE | 2017-03-08 10:25 | HHI.PR ---
Subjective Subjective Notes feels well, +BM Objective Vitals/I&O Vital Signs Date Time Temp Pulse Resp B/P Pulse Ox O2 Delivery O2 Flow Rate FiO2 03/08/17 08:00 97.0 60 17 115/74 97 Cardiovascular: Regular Lungs: Clear Abdomen: Non-distended, Non-tender Extremities: Perfused A/P Assessment and Plan 46yo female s/p exlap, SBR, doing well. DC home Jere Florence MD Mar 08, 2017 10:25
[2017-03-08] MEDS ORDERED: NORC5TAB PO (11:34)
[2017-03-08 12:00] VITALS: BP_SYST 115; BP_SYST 125; BP_DIAS 73; PULSE 60; PULSE 96; RESP 17; TEMP 97; O2SAT 97
[2017-03-08] MEDS ORDERED: BACITRACIN TOP OINT 15 GM TUBE TOPICAL SCH (12:00)
== END 2017-03-08 14:37 | disposition home or self-care (01) | DRG 331 ==
LOC: NEPE 05:57 → NEDA 08:41 → OBSVTOIN 15:34 → N07A 18:27
PROVIDERS: ADMIT Surgery; ATTEND Surgery
PROC: 0DBW0ZX Excision of Peritoneum, Open Approach, Diagnostic (ICD-10-PCS; 2017-03-03)
PROC: 0DB80ZZ Excision of Small Intestine, Open Approach (ICD-10-PCS; principal; 2017-03-03 13:51)
DX: K63.89 Other specified diseases of intestine (principal); F17.210 Nicotine dependence, cigarettes, uncomplicated; R59.1 Generalized enlarged lymph nodes; K56.1 Intussusception; K56.69 Other intestinal obstruction; Z90.710 Acquired absence of both cervix and uterus
CPT/HCPCS: 74176; 80048; 80053; 81001; 83605; 83690; 83735; 85025; 85610; 85730; 86140; 88305; 88312; 93005; 94150; 96361; 96374; 96375; C9113; J0131; J0690; J1100; J1170; J1650; J1885; J2175; J2250; J2270; J2405; J2543; J2710; J3010; J7030; J7120